=== PATIENT | female | born 1965 | race Asian ===

== ENCOUNTER 2021-01-27 09:58 | Inpatient (IN) | payer MEDICAID ==
[~2021-01-27] VITALS: Ht 144.8 cm; Wt 82.0 kg
[2021-01-27] MEDS ORDERED: normal saline 1000ml 1,000 ML IV ONE ×2 (10:10→12:55)
[2021-01-27] MEDS ORDERED: haloperidol lactate 5mg/ml inj IM ONE (10:50)
[2021-01-27 10:59] LABS: BASOPHILS # (AUTO) 0.1 X10'3 (0-0.2); EOSINOPHILS # (AUTO) 0.2 X10'3 (0-0.9); EOSINOPHILS % (AUTO) 1.1 % (0-6); HEMATOCRIT 36.7 % (35.0-45.0); HEMOGLOBIN 11.4 g/dl (12.0-16.0); LYMPHOCYTES # (AUTO) 2.3 X10'3 (1.1-4.8); LYMPHOCYTES % (AUTO) 15.3 % (21-51); MEAN CORPUSCULAR HEMOGLOBIN 20.3 PG (27.0-31.0); MEAN CORPUSCULAR HGB CONC 31.1 g/dL (33.0-36.5); MEAN CORPUSCULAR VOLUME 65.4 FL (78-98); MEAN PLATELET VOLUME 8.9 FL (7.4-10.4); MONOCYTES # (AUTO) 1.2 X10'3 (0-0.9); MONOCYTES % (AUTO) 8.3 % (2-12); NEUTROPHILS % (AUTO) 74.3 % (42-75); PLATELET COUNT 264 X10'3 (140-440); RED BLOOD COUNT 5.62 X10'6 (4.20-5.60); RED CELL DISTRIBUTION WIDTH 15.7 % (11.5-14.5); WHITE BLOOD COUNT 14.8 X10'3 (4.5-11.0)
[2021-01-27 11:12] LABS: AMMONIA < 10 UMOL/L (11-32)
[2021-01-27 11:18] LABS: ALANINE AMINOTRANSFERASE 29 U/L (12-78); ALBUMIN 3.4 G/DL (3.4-5.0); ALBUMIN/GLOBULIN RATIO 0.8 (1.1-1.5); ALKALINE PHOSPHATASE 86 IU/L (46-116); ANION GAP 11 (8-16); ASPARTATE AMINO TRANSFERASE 16 U/L (10-37); BILIRUBIN,TOTAL 0.9 MG/DL (0.1-1.0); BLOOD UREA NITROGEN 19 MG/DL (7-18); BUN/CREATININE RATIO 18.8 (6.6-38.0); CALCIUM 8.5 MG/DL (8.5-10.1); CHLORIDE 107 MMOL/L (99-107); CREATININE 1.01 MG/DL (0.40-0.90); GLUCOSE 132 MG/DL (70-104); POTASSIUM 3.6 MMOL/L (3.5-5.1); SODIUM 147 MMOL/L (135-145); TOTAL CARBON DIOXIDE 29.5 MMOL/L (24-32); TOTAL PROTEIN 7.6 G/DL (6.4-8.2); eGFR 57 ML/MIN
[2021-01-27 11:22] LABS: ETHANOL < 0.010 GM/DL (0.0-0.010); TROPONIN I < 0.04 NG/ML (0.0-0.05)
--- NOTE | 2021-01-27 11:24 | NUR ---
unsucessful attempt at stright cath X 1
[2021-01-27 11:37] LABS: MICROCYTOSIS 2+; PLATELET ESTIMATE NORMAL
[2021-01-27 11:38] LABS: ELLIPTOCYTES FEW; SCHISTOCYTES FEW
[2021-01-27 13:32] LABS: LACTIC SEPSIS 1.7 MMOL/L (0.4-2.0)
[2021-01-27] MEDS ORDERED: magnesium 4gm in 100ml NS 100 ML IV PRN (14:00)
[2021-01-27] MEDS ORDERED: magnesium hydroxide 30ml (MOM) UD suspension PO PRN (14:00)
[2021-01-27] MEDS ORDERED: magnesium 2GM in 50ml NS 50 ML IV PRN (14:00)
[2021-01-27] MEDS ORDERED: mag hydrox/Alum hydrox/simeth 30ml oral suspension PO PRN (14:00)
[2021-01-27] MEDS ORDERED: magnesium Cl slow-release 64mg tablet PO PRN (14:00)
[2021-01-27] MEDS ORDERED: bisacodyl 10mg suppository rectal RC PRN (14:00)
[2021-01-27] MEDS ORDERED: metoclopramide 5 mg/ml inj IV PRN (14:00)
[2021-01-27] MEDS ORDERED: ondansetron/PF 4mg/2ml inj IV PRN (14:00)
[2021-01-27] MEDS ORDERED: potassium Cl 40MEQ/1/2NS 520ml 520 ML IV PRN ×2 (14:00)
[2021-01-27] MEDS ORDERED: acetaminophen 325mg tablet PO PRN ×2 (14:00)
[2021-01-27] MEDS ORDERED: potassium Cl 20 mEq SR tablet PO PRN (14:00)
[2021-01-27] MEDS: CefTRIAXone/D5W-Rocephin 1gm 50 ML IV SCH (15:19)
[2021-01-27] MEDS: normal saline 1000ml 1,000 ML IV SCH (15:20)
[2021-01-27] MEDS ORDERED: METF-437 PO (15:41)
[2021-01-27] MEDS ORDERED: OMEP10CA5 PO (15:41)
[2021-01-27] MEDS ORDERED: NAPR-1170 PO (15:41)
[2021-01-27] MEDS ORDERED: METH-806 PO (15:41)
[2021-01-27] MEDS ORDERED: ATOR10TA70 PO (15:41)
[2021-01-27 16:13] LABS: URINE AMPHETAMINE SCREEN POSITIVE (Neg); URINE BARBITUATE SCREEN NEGATIVE (Neg); URINE BENZODIAZEPINES SCREEN NEGATIVE (Neg); URINE CANNABINOID SCREEN NEGATIVE (Neg); URINE COCAINE SCREEN NEGATIVE (Neg); URINE METHADONE SCREEN POSITIVE (Neg); URINE OPIATE SCREEN POSITIVE (Neg); URINE PHENCYCLIDINE SCREEN NEGATIVE (Neg)
[2021-01-27 16:28] LABS: CLARITY,URINE CLEAR (Clear); COLOR,URINE YELLOW (Yellow); PH,URINE 7.5 (4.8-8.0); PROTEIN,URINE NEGATIVE (Neg); UA COLLECTION TYPE NON-SPECIFIED
[2021-01-27 16:29] LABS: GLUCOSE, URINE NEGATIVE (Neg); KETONES,URINE NEGATIVE (Neg); NITRITES, URINE NEGATIVE (Neg); OCCULT BLOOD,URINE NEGATIVE (Neg)
[2021-01-27 16:30] LABS: LEUKOCYTE ESTERASE ,URINE NEGATIVE (Neg)
[2021-01-27] MEDS: K and/or MAG REPLACEMENT MC SCH (20:18)
[2021-01-27] MEDS: docusate sod 100mg capsule PO SCH (20:29)
[2021-01-27] MEDS: heparin, porcine 5000 units/ml vial SQ SCH (20:30)
[2021-01-27] MEDS ORDERED: temazepam 15mg capsule PO PRN (21:00)
--- NOTE | 2021-01-27 22:35 | NUR ---
Patient in room ED 7. I have received report from PAWEL KAUR and had the opportunity to ask questions and will assume patient care when patient arrives.
[2021-01-28] VITALS: BP 121/55
[2021-01-28] MEDS: normal saline 1000ml 1,000 ML IV SCH ×4 (03:29→18:03)
--- NOTE | 2021-01-28 06:33 | NUR ---
Patient in room [facility] 350. I have received report from Elba KAUR and had the opportunity to ask questions and assume patient care.
--- NOTE | 2021-01-28 06:34 | NUR ---
Problems reprioritized. Patient report given, questions answered & plan of care reviewed with MAIRA E KAUR.
[2021-01-28 07:25] LABS: BASOPHILS % (AUTO) 0.5 % (0-1); EOSINOPHILS # (AUTO) 0.3 X10'3 (0-0.9); EOSINOPHILS % (AUTO) 3.2 % (0-6); HEMATOCRIT 34.7 % (35.0-45.0); HEMOGLOBIN 10.7 g/dl (12.0-16.0); LYMPHOCYTES # (AUTO) 1.7 X10'3 (1.1-4.8); LYMPHOCYTES % (AUTO) 20.9 % (21-51); MEAN CORPUSCULAR HEMOGLOBIN 20.7 PG (27.0-31.0); MEAN CORPUSCULAR HGB CONC 30.8 g/dL (33.0-36.5); MEAN CORPUSCULAR VOLUME 67.2 FL (78-98); MEAN PLATELET VOLUME 8.6 FL (7.4-10.4); MONOCYTES # (AUTO) 0.6 X10'3 (0-0.9); MONOCYTES % (AUTO) 7.9 % (2-12); NEUTROPHILS # (AUTO) 5.5 X10'3 (1.8-7.7); NEUTROPHILS % (AUTO) 67.5 % (42-75); PLATELET COUNT 206 X10'3 (140-440); RED BLOOD COUNT 5.16 X10'6 (4.20-5.60); RED CELL DISTRIBUTION WIDTH 16.1 % (11.5-14.5); WHITE BLOOD COUNT 8.1 X10'3 (4.5-11.0)
[2021-01-28 07:58] LABS: ALANINE AMINOTRANSFERASE 48 U/L (12-78); ALBUMIN 2.7 G/DL (3.4-5.0); ALBUMIN/GLOBULIN RATIO 0.7 (1.1-1.5); ALKALINE PHOSPHATASE 83 IU/L (46-116); ANION GAP 13 (8-16); ASPARTATE AMINO TRANSFERASE 51 U/L (10-37); BILIRUBIN,TOTAL 0.8 MG/DL (0.1-1.0); BLOOD UREA NITROGEN 14 MG/DL (7-18); BUN/CREATININE RATIO 20.6 (6.6-38.0); CALCIUM 8.2 MG/DL (8.5-10.1); CHLORIDE 109 MMOL/L (99-107); CREATININE 0.68 MG/DL (0.40-0.90); GLUCOSE 82 MG/DL (70-104); MAGNESIUM 2.3 MG/DL (1.5-2.4); POTASSIUM 3.3 MMOL/L (3.5-5.1); SODIUM 145 MMOL/L (135-145); TOTAL CARBON DIOXIDE 23.2 MMOL/L (24-32); TOTAL PROTEIN 6.4 G/DL (6.4-8.2); eGFR 90 ML/MIN
[2021-01-28] MEDS: K and/or MAG REPLACEMENT MC SCH ×2 (08:00→20:00)
[2021-01-28] MEDS: docusate sod 100mg capsule PO SCH ×2 (08:46→21:40)
[2021-01-28] MEDS: heparin, porcine 5000 units/ml vial SQ SCH ×2 (08:48→20:00)
[2021-01-28] MEDS: CefTRIAXone/D5W-Rocephin 1gm 50 ML IV SCH (08:48)
[2021-01-28] MEDS: pantoprazole 40mg Tablet.DR PO SCH (08:53)
[2021-01-28 10:04] VITALS: BP 156/72
[2021-01-28 11:44] VITALS: BP 132/70
[2021-01-28 12:33] LABS: ANISOCYTOSIS 1+; MICROCYTOSIS 2+; PLATELET ESTIMATE NORMAL
[2021-01-28 12:34] LABS: ELLIPTOCYTES 1+; SCHISTOCYTES FEW
[2021-01-28] MEDS: potassium Cl 20 mEq SR tablet PO PRN ×2 (16:51→21:40)
--- NOTE | 2021-01-28 19:11 | NUR ---
Family into see patient reported that patient normally taked methadone and zyrtec. DR Colon gave orders with regards this. Slept on and off most of shift. family states this is her baseline. Patients VSS. Report given to carla KAUR
[2021-01-28] MEDS: methadone 10mg tablet PO SCH (21:39)
[2021-01-28] MEDS: cetirizine 10mg tablet PO SCH (21:51)
[2021-01-28] MEDS: lactobacillus rhamnosus 10,000 MMU CELLS/CAPSULE PO SCH (21:51)
--- NOTE | 2021-01-29 06:35 | NUR ---
Problems reprioritized. Patient report given, questions answered & plan of care reviewed with
[2021-01-29 06:49] LABS: BASOPHILS % (AUTO) 0.7 % (0-1); EOSINOPHILS # (AUTO) 0.2 X10'3 (0-0.9); HEMATOCRIT 35.6 % (35.0-45.0); HEMOGLOBIN 11.2 g/dl (12.0-16.0); LYMPHOCYTES # (AUTO) 1.8 X10'3 (1.1-4.8); MEAN CORPUSCULAR HEMOGLOBIN 20.5 PG (27.0-31.0); MEAN CORPUSCULAR HGB CONC 31.3 g/dL (33.0-36.5); MEAN CORPUSCULAR VOLUME 65.4 FL (78-98); MEAN PLATELET VOLUME 8.8 FL (7.4-10.4); MONOCYTES # (AUTO) 0.5 X10'3 (0-0.9); MONOCYTES % (AUTO) 8.4 % (2-12); NEUTROPHILS # (AUTO) 3.3 X10'3 (1.8-7.7); NEUTROPHILS % (AUTO) 56.9 % (42-75); PLATELET COUNT 234 X10'3 (140-440); RED BLOOD COUNT 5.45 X10'6 (4.20-5.60); RED CELL DISTRIBUTION WIDTH 15.7 % (11.5-14.5); WHITE BLOOD COUNT 5.8 X10'3 (4.5-11.0)
--- NOTE | 2021-01-29 06:51 | NUR ---
Patient in room [facility] 350. I have received report from jody KAUR and had the opportunity to ask questions and assume patient care.
[2021-01-29 07:00] VITALS: BP 146/66
[2021-01-29 07:01] LABS: ALANINE AMINOTRANSFERASE 59 U/L (12-78); ALBUMIN 2.7 G/DL (3.4-5.0); ALBUMIN/GLOBULIN RATIO 0.7 (1.1-1.5); ALKALINE PHOSPHATASE 83 IU/L (46-116); ANION GAP 10 (8-16); ASPARTATE AMINO TRANSFERASE 40 U/L (10-37); BILIRUBIN,TOTAL 0.4 MG/DL (0.1-1.0); BLOOD UREA NITROGEN 7 MG/DL (7-18); BUN/CREATININE RATIO 9.3 (6.6-38.0); CALCIUM 8.3 MG/DL (8.5-10.1); CHLORIDE 107 MMOL/L (99-107); CREATININE 0.75 MG/DL (0.40-0.90); GLUCOSE 90 MG/DL (70-104); MAGNESIUM 1.9 MG/DL (1.5-2.4); POTASSIUM 3.2 MMOL/L (3.5-5.1); SODIUM 145 MMOL/L (135-145); TOTAL CARBON DIOXIDE 27.7 MMOL/L (24-32); TOTAL PROTEIN 6.8 G/DL (6.4-8.2); eGFR 80 ML/MIN
[2021-01-29] MEDS: K and/or MAG REPLACEMENT MC SCH (08:00)
[2021-01-29] MEDS: CefTRIAXone/D5W-Rocephin 1gm 50 ML IV SCH (08:11)
[2021-01-29] MEDS: lactobacillus rhamnosus 10,000 MMU CELLS/CAPSULE PO SCH (08:12)
[2021-01-29] MEDS: pantoprazole 40mg Tablet.DR PO SCH (08:12)
[2021-01-29] MEDS: cetirizine 10mg tablet PO SCH (08:12)
[2021-01-29] MEDS: docusate sod 100mg capsule PO SCH (08:12)
[2021-01-29] MEDS: methadone 10mg tablet PO SCH (08:12)
[2021-01-29] MEDS: heparin, porcine 5000 units/ml vial SQ SCH (08:13)
[2021-01-29] MEDS: potassium Cl 20 mEq SR tablet PO PRN ×2 (10:19→14:35)
[2021-01-29] MEDS ORDERED: ondansetron 4mg rapidly disintigrating tab PO PRN (10:35)
[2021-01-29 12:04] LABS: ANISOCYTOSIS 1+; ELLIPTOCYTES 1+; MICROCYTOSIS 2+; PLATELET ESTIMATE NORMAL
[2021-01-29 12:06] LABS: POIKILOCYTOSIS FEW
--- NOTE | 2021-01-29 14:54 | NUR ---
patient up in room to BR appears stable. seen by Dr Gaxiola is for discharge. All Dc instructions given to patient and to family member. patient DC home via private car with family to home in stable condition.
== END 2021-01-29 14:39 | disposition home or self-care (01) | DRG 812 ==
LOC: ER 09:58 → ED HOLD 14:00 → EDBEDREQ 22:46 → SUR 3N 23:26
PROVIDERS: ADMIT Family Medicine; ATTEND Family Medicine
DX: T43.621A Poisoning by amphetamines, accidental (unintentional), initial encounter (principal); G92.8 Other toxic encephalopathy; E87.1 Hypo-osmolality and hyponatremia; E11.22 Type 2 diabetes mellitus with diabetic chronic kidney disease; D64.9 Anemia, unspecified; E78.5 Hyperlipidemia, unspecified; E87.6 Hypokalemia; F15.10 Other stimulant abuse, uncomplicated; Z20.822 Contact with and (suspected) exposure to COVID-19; N18.9 Chronic kidney disease, unspecified; G89.29 Other chronic pain; Z71.51 Drug abuse counseling and surveillance of drug abuser; Y92.89 Other specified places as the place of occurrence of the external cause
CPT/HCPCS: 36415; 70450; 71045; 80053; 80305; 80320; 81003; 82140; 82948; 83605; 83735; 83880; 84145; 84443; 84484; 85008; 85025; 87081; 87635; 93005; 97116; 97161; 97530; 99285; C9803; G0378; J0696; J1630; J1644; J7030

== ENCOUNTER 2023-01-31 06:40 | Inpatient (IN) | payer MEDICAID ==
[2023-01-25 17:14] LABS: PRE OP WHITE BLOOD COUNT 7.3 10'3 (4.8-10.8)
[2023-01-25 17:15] LABS: BASOPHILS % (AUTO) 0.5 % (0-1); EOSINOPHILS # (AUTO) 0.1 X10'3 (0-0.9); EOSINOPHILS % (AUTO) 1.4 % (0-6); LYMPHOCYTES # (AUTO) 2.5 X10'3 (1.1-4.8); LYMPHOCYTES % (AUTO) 34.9 % (21-51); MEAN CORPUSCULAR HEMOGLOBIN 20.9 PG (27.0-31.0); MEAN CORPUSCULAR HGB CONC 31.6 g/dL (33.0-36.5); MEAN CORPUSCULAR VOLUME 66.2 FL (78-98); MEAN PLATELET VOLUME 9.3 FL (7.4-10.4); MONOCYTES # (AUTO) 0.5 X10'3 (0-0.9); MONOCYTES % (AUTO) 6.2 % (2-12); NEUTROPHILS # (AUTO) 4.2 X10'3 (1.8-7.7); PRE OP PLATELET COUNT 285 X10'3 (140-440); RED BLOOD COUNT 5.13 X10'6 (4.20-5.60); RED CELL DISTRIBUTION WIDTH 16.6 % (11.5-14.5)
[2023-01-25 17:17] LABS: PRE OP HEMOGLOBIN 10.7 g/dL (12.0-16.0)
[2023-01-25 17:18] LABS: HEMOGLOBIN A1C 6.3 % (4.5-6.2)
[2023-01-25 17:27] LABS: ALBUMIN 3.3 G/DL (3.4-5.0); ALBUMIN/GLOBULIN RATIO 0.8 (1.1-1.5); ALKALINE PHOSPHATASE 74 IU/L (46-116); BLOOD UREA NITROGEN 12 MG/DL (7-18); BUN/CREATININE RATIO 15.4 (10.0-20.0); CALCIUM 9.1 MG/DL (8.5-10.1); CHLORIDE 103 MMOL/L (99-107); CREATININE 0.78 MG/DL (0.40-0.90); PRE OP ALT 24 U/L (30-65); PRE OP ANION GAP 4 (8-16); PRE OP AST 19 U/L (10-37); PRE OP BILIRUB, TOTAL 0.5 MG/DL (0.0-1.0); PRE OP GLUCOSE 88 MG/DL (70-104); PRE OP POTASSIUM 3.5 MMOL/L (3.4-5.1); PRE OP SODIUM 138 MMOL/L (135-145); TOTAL CARBON DIOXIDE 31.4 MMOL/L (24-32); TOTAL PROTEIN 7.3 G/DL (6.4-8.2); eGFR 76 ML/MIN
[2023-01-25 19:39] LABS: ANISOCYTOSIS 1+; PLATELET ESTIMATE NORMAL
[2023-01-25 19:40] LABS: MICROCYTOSIS 2+; POIKILOCYTOSIS 2+
[2023-01-25 19:41] LABS: TARGET CELLS FEW
[2023-01-25 19:42] LABS: ELLIPTOCYTES 1+
[2023-01-25 19:43] LABS: SCHISTOCYTES FEW
[2023-01-25 19:45] LABS: LARGE PLATELETS FEW
[2023-01-31] VITALS (31 sets, daily range): BP systolic 11–144; BP diastolic 49–80; PULSE 71–92; RESP 13–16; TEMP 98.2–98.3; O2SAT 92–100
[~2023-01-31] VITALS: Ht 144.8 cm; Wt 59.0 kg
[~2023-01-31 06:40] MED LIST: ATOR10TA70 PO; IBUP-1985 PO; LISI20TA28 PO; METF-900 PO; METHADONE PO; OMEP20CA16 PO; cefazolin 2gm/D5W 100mL 100 ML IV ONE; famotidine 20mg tablet PO ONE; ringers solution, lacted 1,000 ML IV SCH; vancomycin 1,500 MG in NS 300ml IV soln IV ONE
[2023-01-31] MEDS ORDERED: glucagon, human recombinant 1mg kit SUBCUT PRN (07:20)
[2023-01-31] MEDS ORDERED: MESSAGE TO PHARMACY PO ONE (07:20)
[2023-01-31] MEDS ORDERED: naloxone 0.4 mg/ml inj IV PRN (07:20)
[2023-01-31] MEDS ORDERED: bisacodyl 10mg suppository rectal RC PRN (07:20)
[2023-01-31] MEDS ORDERED: insulin Lispro (HumaLOG) vial - multi-dose SQ SCH (07:20)
[2023-01-31] MEDS ORDERED: ondansetron/PF 4mg/2ml inj IV PRN ×2 (07:20→10:30)
[2023-01-31] MEDS ORDERED: diphenhydrAMINE 25mg capsule PO PRN ×2 (07:20)
[2023-01-31] MEDS ORDERED: DEXTROSE 15 GM of carb/4 tabs (each vial/BOTTLE has 4 tablets) PO PRN ×2 (07:20)
[2023-01-31] MEDS ORDERED: dextrose 50%-water 50ml dispensing syringe IV PRN ×2 (07:20)
[2023-01-31] MEDS ORDERED: acetaminophen 325mg tablet PO PRN (07:20)
[2023-01-31] MEDS ORDERED: HYDROmorphone inj. 0.5 MG/0.5 ML DISP.SYRIN IV PRN (07:20)
[2023-01-31] MEDS ORDERED: magnesium hydroxide 30ml (MOM) UD suspension PO PRN (07:20)
[2023-01-31] MEDS ORDERED: cloNIDine hcl/PF 100mcg/ml inj ONE (08:13)
[2023-01-31] MEDS ORDERED: epiNEPHrine 1 mg/ml inj ONE (08:13)
[2023-01-31] MEDS ORDERED: vancomycin 1,000mg inj ONE (08:13)
[2023-01-31] MEDS ORDERED: BUPIVACAINE/MELOXICAM 14 ML VIAL IL ONE (08:13)
[2023-01-31] MEDS ORDERED: ROPIVAcaine 0.5% (5mg/ml) 30ml vial ONE ×2 (08:13→10:33)
[2023-01-31] MEDS ORDERED: acetaminophen 325mg tablet PO ONE (09:25)
[2023-01-31] MEDS ORDERED: celeCOXIB 100mg capsule PO ONE (09:25)
[2023-01-31] MEDS ORDERED: gabapentin 300mg capsule PO ONE (09:25)
[2023-01-31] MEDS ORDERED: oxyCODONE SR 10mg (sust. release) tab -2 tabs (20mg) PO ONE (09:25)
[2023-01-31] MEDS ORDERED: tranexamic acid inj. 1,000 MG in normal saline IV soln 100ML IV ONE (09:25)
[2023-01-31] MEDS ORDERED: metoclopramide 5 mg/ml inj IV ONE (09:25)
[2023-01-31] MEDS ORDERED: fentaNYL/PF 50MCG/1 ML 2ML syringe ONE (09:44)
[2023-01-31] MEDS ORDERED: midazolam 1 mg/ML 2ml injection ONE (09:45)
[2023-01-31] MEDS ORDERED: propofol inj 20 ML IV ONE ×2 (10:17)
[2023-01-31] MEDS ORDERED: morphine 2 MG/ML inj. syringe IV PRN (10:30)
[2023-01-31] MEDS ORDERED: meperidine/PF 25mg/ml syringe IV PRN ×3 (10:30)
[2023-01-31] MEDS ORDERED: proCHLORperazine 10 MG/2 ml inj IV PRN (10:30)
[2023-01-31] MEDS ORDERED: morphine 4 MG/ML inj SYRINge IV PRN (10:30)
[2023-01-31] MEDS ORDERED: ringers solution, lacted 1,000 ML IV SCH (10:30)
[2023-01-31] MEDS ORDERED: hydrALAZINE 20mg/ml inj. IV PRN (10:30)
[2023-01-31] MEDS ORDERED: ketorolac trometh. 30mg/ml inj. IV ONE (10:30)
[2023-01-31] MEDS ORDERED: acetaminophen 1,000mg/100ml IV 100 ML IV PRN (10:30)
[2023-01-31] MEDS ORDERED: labetalol 20mg/4ml (5mg/ml) syringe IV PRN (10:30)
[2023-01-31] MEDS ORDERED: dexamethasone sod phosphate 4mg/ml inj. ONE (10:33)
--- NOTE | 2023-01-31 11:50 | NUR ---
Received from OR via BED, accompanied by Anesthesiologist and report given by Anesthesiologist. PATIENT WAKING UP, NO S/S OF PAIN, V/S WNL, SCD ON, 20G TO RUE, SUNNY drsg to LEFT KNEE CDI with POWDER PACK
--- NOTE | 2023-01-31 11:50 | NUR ---
Received from OR via BED, accompanied by Anesthesiologist and report given by Anesthesiologist. PATIENT WAKING UP, NO S/S OF PAIN, V/S WNL, SCD ON, 12G TO SUNNY MEADE drsg to RIGHT KNEE CDI with ON Q BALL AT 2ML/HR. Addendum: 01/31/23 at 1155 by Jack Bailey RN WRONG NOTE
[2023-01-31] MEDS ORDERED: tranexamic acid inj. 680 MG in normal saline 100ml IV soln 93.2 ML IV ONE (15:00)
--- NOTE | 2023-01-31 17:50 | NUR ---
PATIENT a&ox4, denies PAIN, V/S WNL, SCD ON, 20G TO RUE, SUNNY drsg to LEFT KNEE CDI with POWDER PACK. patient taken to 4007 with all belongings and hooked up to monitors in room and report given to derek tariq who has taken over patient care.
--- NOTE | 2023-01-31 18:05 | NUR ---
Patient in room [facility] 4007. I have received report from VINCENT Tang and had the opportunity to ask questions and will take vitals and give report to night nurse.
--- NOTE | 2023-01-31 18:30 | NUR ---
Problems reprioritized. Patient report given, questions answered & plan of care reviewed with VINCENT Meléndez.
--- NOTE | 2023-01-31 18:40 | NUR ---
Patient in room [facility]TH[facility] 4007. I have received report from VINCENT Espinoza and had the opportunity to ask questions and assume patient care.
[2023-01-31] MEDS ORDERED: vancomycin/NS 1 GM ADD-VANTAGE 250 ML IV SCH (20:00)
[2023-01-31] MEDS: potassium cl 20mEq in 1/2 NS 1,000 ML IV SCH ×2 (20:37→21:09)
[2023-01-31] MEDS: ascorbic acid 500mg tablet PO SCH (20:41)
[2023-01-31] MEDS: sennosides 8.6mg tablet PO SCH (20:41)
[2023-01-31] MEDS: gabapentin 300mg capsule PO SCH (20:41)
[2023-01-31] MEDS: atorvastatin 10mg tablet PO SCH (20:41)
[2023-01-31] MEDS: insulin glargine (Lantus) pen - multi-dose SQ SCH (21:00)
[2023-02-01] VITALS (7 sets, daily range): BP systolic 103–145; BP diastolic 60–83; PULSE 66–112; RESP 14–18; TEMP 97.9–98.8; O2SAT 95–99
--- NOTE | 2023-02-01 06:46 | NUR ---
Patient in room [facility]TH[facility] 4007. I have received report from KENDAL KAUR and had the opportunity to ask questions and assume patient care.
--- NOTE | 2023-02-01 06:47 | NUR ---
Problems reprioritized. Patient report given, questions answered & plan of care reviewed with VINCENT Wilson.
[2023-02-01] MEDS: methadone 10mg tablet PO SCH (07:11)
[2023-02-01] MEDS: lisinopril 20mg tablet PO SCH (07:12)
[2023-02-01] MEDS: gabapentin 300mg capsule PO SCH ×3 (07:12→20:11)
[2023-02-01] MEDS: multivitamins, therapeutics tablet PO SCH (07:13)
[2023-02-01] MEDS: pantoprazole 40mg Tablet.DR PO SCH (07:13)
[2023-02-01] MEDS: ascorbic acid 500mg tablet PO SCH ×2 (07:13→20:11)
[2023-02-01] MEDS: potassium cl 20mEq in 1/2 NS 1,000 ML IV SCH ×3 (07:21→17:18)
[2023-02-01] MEDS: aspirin 325mg tablet PO SCH (07:21)
[2023-02-01 07:40] LABS: BASOPHILS # (AUTO) 0.1 X10'3 (0-0.2); BASOPHILS % (AUTO) 0.5 % (0-1); EOSINOPHILS # (AUTO) 0.1 X10'3 (0-0.9); EOSINOPHILS % (AUTO) 0.5 % (0-6); HEMATOCRIT 28.3 % (35.0-45.0); LYMPHOCYTES # (AUTO) 1.3 X10'3 (1.1-4.8); LYMPHOCYTES % (AUTO) 12.2 % (21-51); MEAN CORPUSCULAR HGB CONC 31.7 g/dL (33.0-36.5); MEAN CORPUSCULAR VOLUME 66.2 FL (78-98); MEAN PLATELET VOLUME 9.9 FL (7.4-10.4); MONOCYTES # (AUTO) 1.1 X10'3 (0-0.9); MONOCYTES % (AUTO) 10.3 % (2-12); NEUTROPHILS # (AUTO) 8.1 X10'3 (1.8-7.7); NEUTROPHILS % (AUTO) 76.5 % (42-75); PLATELET COUNT 197 X10'3 (140-440); RED BLOOD COUNT 4.28 X10'6 (4.20-5.60); RED CELL DISTRIBUTION WIDTH 16.7 % (11.5-14.5); WHITE BLOOD COUNT 10.6 X10'3 (4.5-11.0)
[2023-02-01 08:19] LABS: ANION GAP 7 (8-16); CHLORIDE 105 MMOL/L (99-107); SODIUM 139 MMOL/L (135-145)
[2023-02-01 09:51] LABS: PLATELET ESTIMATE NORMAL
[2023-02-01 09:52] LABS: ANISOCYTOSIS 1+; ELLIPTOCYTES 2+; HYPOCHROMASIA 2+; MICROCYTOSIS 2+; POLYCHROMASIA FEW; SCHISTOCYTES FEW; TARGET CELLS FEW
--- NOTE | 2023-02-01 10:57 | NUR ---
Joint surgery consult: Pt s/p knee surgery. Pt busy with another discipline during RD visit. Placed high protein nutrition handout in pt's chart with RD contact information. Will remain available for any nutrition questions or concerns. Addendum: 02/01/23 at [address] Amended: Links added.
[2023-02-01] MEDS: HYDROcodone/acetaminophen 10/325mg tab PO PRN ×2 (14:58→19:17)
[2023-02-01] MEDS: HYDROmorphone 1 mg/ml syringe IV PRN ×2 (17:12→22:31)
--- NOTE | 2023-02-01 18:31 | NUR ---
Problems reprioritized. Patient report given to sully KAUR, questions answered & plan of care reviewed with .
[2023-02-01] MEDS: atorvastatin 10mg tablet PO SCH (20:11)
[2023-02-01] MEDS: celeCOXIB 100mg capsule PO SCH (20:11)
[2023-02-01] MEDS: sennosides 8.6mg tablet PO SCH (20:11)
[2023-02-01] MEDS: insulin glargine (Lantus) pen - multi-dose SQ SCH (21:00)
[2023-02-02] MEDS: potassium cl 20mEq in 1/2 NS 1,000 ML IV SCH (01:26)
[2023-02-02] MEDS: HYDROcodone/acetaminophen 10/325mg tab PO PRN ×3 (01:29→19:17)
[2023-02-02] MEDS: HYDROmorphone 1 mg/ml syringe IV PRN ×2 (02:51→11:23)
--- NOTE | 2023-02-02 06:24 | NUR ---
Patient in room ORTH[facility] 4007. I have received report from MARY KAUR and had the opportunity to ask questions and assume patient care.
--- NOTE | 2023-02-02 06:25 | NUR ---
Problems reprioritized. Patient report given, questions answered & plan of care reviewed with [place] KAUR. Addendum: 02/02/23 at 0625 by Toshia Stephens RN Amended: Links added.
[2023-02-02 06:33] VITALS: BP 162/91; PULSE 102; RESP 16; TEMP 97.6; O2SAT 98
[2023-02-02 06:41] LABS: BASOPHILS # (AUTO) 0.1 X10'3 (0-0.2); BASOPHILS % (AUTO) 0.5 % (0-1); EOSINOPHILS # (AUTO) 0.1 X10'3 (0-0.9); EOSINOPHILS % (AUTO) 1.2 % (0-6); HEMATOCRIT 30.1 % (35.0-45.0); HEMOGLOBIN 9.5 g/dl (12.0-16.0); LYMPHOCYTES # (AUTO) 1.5 X10'3 (1.1-4.8); LYMPHOCYTES % (AUTO) 13.9 % (21-51); MEAN CORPUSCULAR HGB CONC 31.6 g/dL (33.0-36.5); MEAN CORPUSCULAR VOLUME 66.5 FL (78-98); MEAN PLATELET VOLUME 9.5 FL (7.4-10.4); MONOCYTES # (AUTO) 1.2 X10'3 (0-0.9); MONOCYTES % (AUTO) 11.2 % (2-12); NEUTROPHILS % (AUTO) 73.2 % (42-75); PLATELET COUNT 211 X10'3 (140-440); RED BLOOD COUNT 4.52 X10'6 (4.20-5.60); RED CELL DISTRIBUTION WIDTH 16.5 % (11.5-14.5); WHITE BLOOD COUNT 10.9 X10'3 (4.5-11.0)
[2023-02-02 07:21] LABS: ACANTHOCYTES FEW; ANISOCYTOSIS 1+; ELLIPTOCYTES 1+; MICROCYTOSIS 2+; PLATELET ESTIMATE NORMAL; SCHISTOCYTES FEW
[2023-02-02] MEDS: gabapentin 300mg capsule PO SCH ×3 (07:27→19:16)
[2023-02-02] MEDS: multivitamins, therapeutics tablet PO SCH (07:27)
[2023-02-02] MEDS: methadone 10mg tablet PO SCH (07:27)
[2023-02-02] MEDS: celeCOXIB 100mg capsule PO SCH ×2 (07:28→19:17)
[2023-02-02] MEDS: ascorbic acid 500mg tablet PO SCH ×2 (07:28→19:18)
[2023-02-02] MEDS: pantoprazole 40mg Tablet.DR PO SCH (07:28)
[2023-02-02] MEDS: lisinopril 20mg tablet PO SCH (07:29)
[2023-02-02] MEDS: aspirin 325mg tablet PO SCH (09:21)
[2023-02-02 09:46] VITALS: BP 139/83; PULSE 79; RESP 16; TEMP 98.2; O2SAT 99
[2023-02-02 11:35] VITALS: RESP 16; O2SAT 99
[2023-02-02] MEDS ORDERED: ondansetron 4mg rapidly disintigrating tab PO PRN (13:07)
[2023-02-02 18:00] VITALS: BP 148/82; PULSE 107; RESP 19; TEMP 98.1; O2SAT 99
--- NOTE | 2023-02-02 18:46 | NUR ---
Problems reprioritized. Patient report given TO GABRIELE KAUR, questions answered & plan of care reviewed with .
[2023-02-02] MEDS: sennosides 8.6mg tablet PO SCH (19:16)
[2023-02-02] MEDS: atorvastatin 10mg tablet PO SCH (19:17)
[2023-02-02] MEDS: insulin glargine (Lantus) pen - multi-dose SQ SCH (21:00)
[2023-02-02 22:00] VITALS: BP 126/68; PULSE 96; RESP 14; TEMP 98.6; O2SAT 97
--- NOTE | 2023-02-02 22:57 | NUR ---
reported to VINCENT gold.
[2023-02-03 02:00] VITALS: BP 126/68; PULSE 96; RESP 14; TEMP 98.6; O2SAT 97
[2023-02-03] MEDS: HYDROcodone/acetaminophen 10/325mg tab PO PRN ×5 (04:43→22:26)
[2023-02-03 06:00] VITALS: BP 140/81; PULSE 98; RESP 20; TEMP 97.8; O2SAT 97
--- NOTE | 2023-02-03 06:38 | NUR ---
Patient in room [facility] 4007. I have received report from VINCENT Panda and had the opportunity to ask questions and assume patient care.
[2023-02-03] MEDS: ascorbic acid 500mg tablet PO SCH ×2 (07:14→20:10)
[2023-02-03] MEDS: gabapentin 300mg capsule PO SCH ×3 (07:14→20:10)
[2023-02-03] MEDS: celeCOXIB 100mg capsule PO SCH ×2 (07:14→20:10)
[2023-02-03] MEDS: multivitamins, therapeutics tablet PO SCH (07:15)
[2023-02-03] MEDS: lisinopril 20mg tablet PO SCH (07:15)
[2023-02-03] MEDS: methadone 10mg tablet PO SCH (07:16)
[2023-02-03] MEDS: pantoprazole 40mg Tablet.DR PO SCH (07:16)
[2023-02-03] MEDS: aspirin 325mg tablet PO SCH (07:25)
[2023-02-03 07:31] LABS: BASOPHILS # (AUTO) 0.1 X10'3 (0-0.2); BASOPHILS % (AUTO) 0.6 % (0-1); EOSINOPHILS # (AUTO) 0.3 X10'3 (0-0.9); HEMOGLOBIN 9.1 g/dl (12.0-16.0); LYMPHOCYTES # (AUTO) 1.5 X10'3 (1.1-4.8); LYMPHOCYTES % (AUTO) 14.1 % (21-51); MEAN CORPUSCULAR HEMOGLOBIN 20.8 PG (27.0-31.0); MEAN CORPUSCULAR HGB CONC 31.5 g/dL (33.0-36.5); MEAN CORPUSCULAR VOLUME 66.1 FL (78-98); MEAN PLATELET VOLUME 10.4 FL (7.4-10.4); MONOCYTES # (AUTO) 1.2 X10'3 (0-0.9); MONOCYTES % (AUTO) 10.9 % (2-12); NEUTROPHILS # (AUTO) 7.8 X10'3 (1.8-7.7); NEUTROPHILS % (AUTO) 71.4 % (42-75); PLATELET COUNT 200 X10'3 (140-440); RED BLOOD COUNT 4.39 X10'6 (4.20-5.60); RED CELL DISTRIBUTION WIDTH 16.6 % (11.5-14.5)
[2023-02-03 09:57] LABS: HYPOCHROMASIA 1+; LARGE PLATELETS FEW; PLATELET ESTIMATE NORMAL
[2023-02-03 09:58] LABS: ANISOCYTOSIS 1+; ELLIPTOCYTES 1+; MICROCYTOSIS 2+; SCHISTOCYTES FEW; TARGET CELLS FEW; TEAR DROP CELLS 1+
[2023-02-03 10:44] VITALS: BP 97/54; PULSE 87; RESP 16; TEMP 98.6; O2SAT 97
[2023-02-03 18:00] VITALS: BP 120/62; PULSE 90; RESP 18; TEMP 98.4; O2SAT 96
--- NOTE | 2023-02-03 18:18 | NUR ---
Problems reprioritized. Patient report given, questions answered & plan of care reviewed with VINCENT Meléndez.
--- NOTE | 2023-02-03 18:30 | NUR ---
Patient in room [facility]TH[facility] 4007. I have received report from VINCENT Espinoza and had the opportunity to ask questions and assume patient care.
[2023-02-03] MEDS: sennosides 8.6mg tablet PO SCH (20:10)
[2023-02-03] MEDS: atorvastatin 10mg tablet PO SCH (20:10)
[2023-02-03 20:40] VITALS: RESP 18; O2SAT 96
[2023-02-03] MEDS: insulin glargine (Lantus) pen - multi-dose SQ SCH (21:20)
[2023-02-03 22:00] VITALS: BP 123/82; PULSE 104; RESP 18; TEMP 97.1; O2SAT 100
[2023-02-04] MEDS: HYDROcodone/acetaminophen 10/325mg tab PO PRN ×5 (04:11→17:08)
[2023-02-04 06:00] VITALS: BP 141/68; PULSE 95; RESP 20; TEMP 98; O2SAT 100
--- NOTE | 2023-02-04 06:24 | NUR ---
Problems reprioritized. Patient report given, questions answered & plan of care reviewed with VINCENT Espinoza.
--- NOTE | 2023-02-04 06:32 | NUR ---
Patient in room [facility]TH[facility] 4007. I have received report from VINCENT Meléndez and had the opportunity to ask questions and assume patient care.
[2023-02-04] MEDS: gabapentin 300mg capsule PO SCH ×3 (08:26→20:40)
[2023-02-04] MEDS: lisinopril 20mg tablet PO SCH (08:26)
[2023-02-04] MEDS: methadone 10mg tablet PO SCH (08:28)
[2023-02-04] MEDS: aspirin 325mg tablet PO SCH (08:28)
[2023-02-04] MEDS: celeCOXIB 100mg capsule PO SCH ×2 (08:28→20:40)
[2023-02-04] MEDS: ascorbic acid 500mg tablet PO SCH ×2 (08:28→20:40)
[2023-02-04] MEDS: multivitamins, therapeutics tablet PO SCH (08:28)
[2023-02-04] MEDS: pantoprazole 40mg Tablet.DR PO SCH (08:29)
[2023-02-04 09:37] VITALS: O2SAT 98
--- NOTE | 2023-02-04 09:57 | NUR ---
Doctor Mo Buchanan wants patient to go to rehab. I have notified case management to get her placed [facility]. Will continue to wait for case management to find placement.
[2023-02-04 10:00] VITALS: BP 126/70; PULSE 90; RESP 16; TEMP 97.9; O2SAT 100
[2023-02-04 18:00] VITALS: BP 103/56; PULSE 86; RESP 17; TEMP 97.8; O2SAT 98
--- NOTE | 2023-02-04 18:30 | NUR ---
Patient in room [facility]TH[facility] 4007. I have received report from VINCENT Espinoza and had the opportunity to ask questions and assume patient care.
--- NOTE | 2023-02-04 18:48 | NUR ---
Problems reprioritized. Patient report given, questions answered & plan of care reviewed with VINCENT Meléndez.
[2023-02-04 20:20] VITALS: RESP 17; O2SAT 98
[2023-02-04] MEDS: atorvastatin 10mg tablet PO SCH (20:40)
[2023-02-04] MEDS: sennosides 8.6mg tablet PO SCH (20:41)
[2023-02-04] MEDS: insulin glargine (Lantus) pen - multi-dose SQ SCH (21:00)
[2023-02-04 22:00] VITALS: BP 122/64; PULSE 88; RESP 15; TEMP 97.9; O2SAT 100
[2023-02-05] MEDS: HYDROcodone/acetaminophen 10/325mg tab PO PRN ×2 (04:48→14:02)
[2023-02-05 06:00] VITALS: BP 135/72; PULSE 98; RESP 16; TEMP 98.3; O2SAT 99
[2023-02-05 06:04] LABS: BASOPHILS # (AUTO) 0.1 X10'3 (0-0.2); BASOPHILS % (AUTO) 0.7 % (0-1); EOSINOPHILS # (AUTO) 0.3 X10'3 (0-0.9); EOSINOPHILS % (AUTO) 2.9 % (0-6); HEMATOCRIT 25.8 % (35.0-45.0); HEMOGLOBIN 8.1 g/dl (12.0-16.0); LYMPHOCYTES # (AUTO) 1.4 X10'3 (1.1-4.8); LYMPHOCYTES % (AUTO) 14.5 % (21-51); MEAN CORPUSCULAR HEMOGLOBIN 20.7 PG (27.0-31.0); MEAN CORPUSCULAR HGB CONC 31.5 g/dL (33.0-36.5); MEAN CORPUSCULAR VOLUME 65.7 FL (78-98); MEAN PLATELET VOLUME 9.4 FL (7.4-10.4); MONOCYTES # (AUTO) 0.6 X10'3 (0-0.9); MONOCYTES % (AUTO) 6.6 % (2-12); NEUTROPHILS # (AUTO) 7.3 X10'3 (1.8-7.7); NEUTROPHILS % (AUTO) 75.3 % (42-75); PLATELET COUNT 229 X10'3 (140-440); RED BLOOD COUNT 3.93 X10'6 (4.20-5.60); RED CELL DISTRIBUTION WIDTH 15.9 % (11.5-14.5); WHITE BLOOD COUNT 9.7 X10'3 (4.5-11.0)
--- NOTE | 2023-02-05 06:24 | NUR ---
Problems reprioritized. Patient report given, questions answered & plan of care reviewed with VINCENT Figueroa.
[2023-02-05 06:41] LABS: ALBUMIN 2.2 G/DL (3.4-5.0); ANION GAP 10 (8-16); BLOOD UREA NITROGEN 18 MG/DL (7-18); BUN/CREATININE RATIO 21.7 (10.0-20.0); CALCIUM 8.2 MG/DL (8.5-10.1); CHLORIDE 104 MMOL/L (99-107); CREATININE 0.83 MG/DL (0.40-0.90); GLUCOSE 151 MG/DL (70-104); POTASSIUM 4.1 MMOL/L (3.5-5.1); SODIUM 138 MMOL/L (135-145); TOTAL CARBON DIOXIDE 24.1 MMOL/L (24-32); eCRCL 45 ML/MIN; eGFR 71 ML/MIN
[2023-02-05 07:07] LABS: HYPOCHROMASIA 1+; MICROCYTOSIS 2+; PLATELET ESTIMATE NORMAL; TARGET CELLS FEW
[2023-02-05 07:08] LABS: ANISOCYTOSIS FEW; BURR CELLS FEW; ELLIPTOCYTES 1+; POLYCHROMASIA FEW
[2023-02-05] MEDS: aspirin 325mg tablet PO SCH (09:25)
[2023-02-05] MEDS: lisinopril 20mg tablet PO SCH (09:26)
[2023-02-05] MEDS: ascorbic acid 500mg tablet PO SCH (09:26)
[2023-02-05] MEDS: methadone 10mg tablet PO SCH (09:26)
[2023-02-05] MEDS: multivitamins, therapeutics tablet PO SCH (09:26)
[2023-02-05] MEDS: atorvastatin 10mg tablet PO SCH (09:26)
[2023-02-05] MEDS: pantoprazole 40mg Tablet.DR PO SCH (09:27)
[2023-02-05] MEDS: gabapentin 300mg capsule PO SCH ×2 (09:27→14:00)
[2023-02-05] MEDS: celeCOXIB 100mg capsule PO SCH (09:34)
--- NOTE | 2023-02-05 09:50 | NUR ---
Patient in room [facility]TH[facility] 4007. I have received report from bart reed and had the opportunity to ask questions and assume patient care.
[2023-02-05 10:00] VITALS: BP 127/66; PULSE 98; RESP 14; TEMP 98.4; O2SAT 98
--- NOTE | 2023-02-05 13:30 | NUR ---
Problems reprioritized. Patient report given, questions answered & plan of care reviewed with gagan at [facility].
--- NOTE | 2023-02-05 15:10 | NUR ---
pt stable for dc, iv was dc in early am and per md it was ok to not have since pt will be going to rehab today, all belongings taken, and report was called, pt family took her belongings home. she was picked up by [facility] personnel and left in a [facility] to [facility].
[2023-02-05 15:13] VITALS: RESP 16
== END 2023-02-05 14:05 | disposition home or self-care (01) | DRG 326 ==
LOC: PAS IN 06:40 → ORTHO 4S 17:55
PROVIDERS: ADMIT Orthopaedic Surgery; ATTEND Orthopaedic Surgery
PROC: 3E0T3BZ Introduction of Anesthetic Agent into Peripheral Nerves and Plexi, Percutaneous Approach (ICD-10-PCS; 2023-01-31)
PROC: 3E0T33Z Introduction of Anti-inflammatory into Peripheral Nerves and Plexi, Percutaneous Approach (ICD-10-PCS; 2023-01-31)
PROC: 0SRD0J9 Replacement of Left Knee Joint with Synthetic Substitute, Cemented, Open Approach (ICD-10-PCS; principal; 2023-01-31 09:41)
DX: M17.12 Unilateral primary osteoarthritis, left knee (principal); D50.9 Iron deficiency anemia, unspecified; F11.10 Opioid abuse, uncomplicated; M85.80 Other specified disorders of bone density and structure, unspecified site; Z79.899 Other long term (current) drug therapy
CPT/HCPCS: 36415; 73560; 80048; 80051; 80053; 82948; 83036; 85008; 85025; 86885; 86900; 86901; 87081; 97116; 97161; 97530; A4215; A4615; A7000; C1713; C1776; G0378; J0131; J0171; J0690; J0735; J1100; J1170; J1815; J1885; J2250; J2704; J2765; J2795; J3010; J3370; J3480; J3490; J7060; J7120

== ENCOUNTER 2023-10-18 06:14 | Inpatient (IN) | payer MEDICAID ==
[2023-10-09 10:52] LABS: BASOPHILS % (AUTO) 0.4 % (0-1); EOSINOPHILS # (AUTO) 0.3 X10'3 (0-0.9); EOSINOPHILS % (AUTO) 3.9 % (0-6); LYMPHOCYTES # (AUTO) 1.8 X10'3 (1.1-4.8); LYMPHOCYTES % (AUTO) 22.6 % (21-51); MEAN CORPUSCULAR HEMOGLOBIN 20.1 PG (27.0-31.0); MEAN CORPUSCULAR HGB CONC 30.9 g/dL (33.0-36.5); MEAN CORPUSCULAR VOLUME 65.1 FL (78-98); MEAN PLATELET VOLUME 9.3 FL (7.4-10.4); MONOCYTES # (AUTO) 0.6 X10'3 (0-0.9); MONOCYTES % (AUTO) 7.7 % (2-12); NEUTROPHILS # (AUTO) 5.3 X10'3 (1.8-7.7); NEUTROPHILS % (AUTO) 65.4 % (42-75); PRE OP HEMATOCRIT 31.9 % (35.0-45.0); PRE OP PLATELET COUNT 225 X10'3 (140-440); PRE OP WHITE BLOOD COUNT 8.1 10'3 (4.8-10.8); RED CELL DISTRIBUTION WIDTH 15.7 % (11.5-14.5)
[2023-10-09 10:54] LABS: PRE OP HEMOGLOBIN 9.9 g/dL (12.0-16.0)
[2023-10-09 11:08] LABS: ALBUMIN 3.2 G/DL (3.4-5.0); ALBUMIN/GLOBULIN RATIO 0.7 (1.1-1.5); ALKALINE PHOSPHATASE 96 IU/L (46-116); BLOOD UREA NITROGEN 16 MG/DL (7-18); CALCIUM 8.4 MG/DL (8.5-10.1); CHLORIDE 104 MMOL/L (99-107); CREATININE 0.84 MG/DL (0.40-0.90); PRE OP ALT 22 U/L (30-65); PRE OP ANION GAP 9 (8-16); PRE OP AST 18 U/L (10-37); PRE OP BILIRUB, TOTAL 0.3 MG/DL (0.0-1.0); PRE OP GLUCOSE 137 MG/DL (70-104); PRE OP POTASSIUM 3.6 MMOL/L (3.4-5.1); PRE OP SODIUM 143 MMOL/L (135-145); TOTAL CARBON DIOXIDE 30.3 MMOL/L (24-32); TOTAL PROTEIN 7.8 G/DL (6.4-8.2); eGFR 70 ML/MIN
[2023-10-09 11:13] LABS: HYPOCHROMASIA 1+; MICROCYTOSIS 2+; PLATELET ESTIMATE NORMAL; TEAR DROP CELLS FEW
[2023-10-09 11:14] LABS: ELLIPTOCYTES FEW
[~2023-10-18] VITALS: Ht 149.9 cm; Wt 63.5 kg
[2023-10-18] VITALS (23 sets, daily range): BP systolic 100–140; BP diastolic 50–73; PULSE 56–91; RESP 12–18; TEMP 97.3–98.9; O2SAT 94–99
[2023-10-18] MEDS: tranexamic acid inj. 1,000 MG in normal saline IV soln 100ML IV ONE (05:30)
[~2023-10-18 06:14] MED LIST changes: +CELE-127 PO; +GABA300T28 PO; +HYDR12.55 PO; -IBUP-1985 PO; +METF-438 PO; -METF-900 PO; -OMEP20CA16 PO; -cefazolin 2gm/D5W 100mL 100 ML IV ONE; -famotidine 20mg tablet PO ONE; -ringers solution, lacted 1,000 ML IV SCH; -vancomycin 1,500 MG in NS 300ml IV soln IV ONE
[2023-10-18] MEDS: cefazolin 2gm/D5W 100mL 100 ML IV ONE (06:27)
[2023-10-18] MEDS ORDERED: HYDROmorphone inj. 0.5 MG/0.5 ML DISP.SYRIN IV PRN (07:20)
[2023-10-18] MEDS: ROPIVAcaine inj 250 MG, CloNIDine/PF inj 80 MCG, epiNEPHrine inj 0.5 MG in normal salin... IV ONE (07:20)
[2023-10-18] MEDS ORDERED: dextrose 50%-water 50ml dispensing syringe IV PRN ×2 (07:20)
[2023-10-18] MEDS ORDERED: acetaminophen 325mg tablet PO PRN (07:20)
[2023-10-18] MEDS ORDERED: ondansetron/PF 4mg/2ml inj IV PRN ×2 (07:20→09:35)
[2023-10-18] MEDS ORDERED: glucagon, human recombinant 1mg kit SUBCUT PRN (07:20)
[2023-10-18] MEDS ORDERED: naloxone 0.4 mg/ml inj IV PRN (07:20)
[2023-10-18] MEDS ORDERED: magnesium hydroxide 30ml (MOM) UD suspension PO PRN (07:20)
[2023-10-18] MEDS ORDERED: DEXTROSE 15 GM of carb/4 tabs (each vial/BOTTLE has 4 tablets) PO PRN ×2 (07:20)
[2023-10-18] MEDS ORDERED: bisacodyl 10mg suppository rectal RC PRN (07:20)
[2023-10-18] MEDS: BUPIVACAINE/MELOXICAM 14 ML VIAL IL ONE ×2 (08:13→11:25)
[2023-10-18] MEDS: ringers solution, lacted 1,000 ML IV SCH ×2 (08:32→16:51)
[2023-10-18] MEDS: vancomycin 1,500 MG in NS 300ml IV soln IV ONE (08:35)
[2023-10-18] MEDS: metoclopramide 5 mg/ml inj IV ONE (08:36)
[2023-10-18] MEDS: celeCOXIB 100mg capsule PO ONE (08:37)
[2023-10-18] MEDS: gabapentin 300mg capsule PO ONE (08:38)
[2023-10-18] MEDS: famotidine 20mg tablet PO ONE (08:38)
[2023-10-18] MEDS: acetaminophen 325mg tablet PO ONE (08:39)
[2023-10-18] MEDS: vancomycin 1,000mg inj ONE (09:01)
[2023-10-18] MEDS ORDERED: proCHLORperazine 10 MG/2 ml inj IV PRN (09:35)
[2023-10-18] MEDS ORDERED: morphine 4 MG/ML inj SYRINge IV PRN (09:35)
[2023-10-18] MEDS ORDERED: hydrALAZINE 20mg/ml inj. IV PRN (09:35)
[2023-10-18] MEDS ORDERED: labetalol 20mg/4ml (5mg/ml) syringe IV PRN (09:35)
[2023-10-18] MEDS ORDERED: meperidine/PF 25mg/ml syringe IV PRN ×3 (09:35)
[2023-10-18] MEDS ORDERED: morphine 2 MG/ML inj. syringe IV PRN (09:35)
[2023-10-18] MEDS ORDERED: fentaNYL/PF 50MCG/1 ML 2ML syringe ONE (09:41)
[2023-10-18] MEDS ORDERED: midazolam 1 mg/ML 2ml injection ONE (09:41)
[2023-10-18] MEDS ORDERED: BUPIVAcaine/dex-water/PF 7.5 mg/ml 2ml ampul ONE (09:53)
[2023-10-18] MEDS: oxyCODONE SR 10mg (sust. release) tab -2 tabs (20mg) PO ONE (10:00)
[2023-10-18] MEDS ORDERED: propofol inj 20 ML IV ONE ×2 (10:31)
[2023-10-18] MEDS ORDERED: 0.9 % SODIUM CHLORIDE 10 ML VIAL ONE (11:14)
[2023-10-18] MEDS ORDERED: ROPIVAcaine 0.5% (5mg/ml) 30ml vial ONE (11:14)
[2023-10-18] MEDS: INSULIN LISPRO 100 UNIT/ML INSULN.PEN MULTI-DOSE SQ SCH (12:00)
[2023-10-18] MEDS: acetaminophen 1,000mg/100ml IV 100 ML IV ONE (12:42)
[2023-10-18] MEDS: tranexamic acid inj. 650 MG in normal saline 100ml IV soln 93.5 ML IV ONE (15:00)
[2023-10-18] MEDS: potassium cl 20mEq in 1/2 NS 1,000 ML IV SCH (15:20)
[2023-10-18] MEDS: HYDROcodone/acetaminophen 10/325mg tab PO PRN (16:36)
[2023-10-18] MEDS: ceFAZolin/D5W- 1GM premix 50 ML IV SCH (16:51)
[2023-10-18] MEDS: vancomycin/NS 1 GM ADD-VANTAGE 250 ML IV SCH (21:21)
[2023-10-18] MEDS: ascorbic acid 500mg tablet PO SCH (21:21)
[2023-10-18] MEDS: HYDROchlorothiazide 12.5mg capsule PO SCH (21:21)
[2023-10-18] MEDS: atorvastatin 10mg tablet PO SCH (21:21)
[2023-10-18] MEDS: sennosides 8.6mg tablet PO SCH (21:21)
[2023-10-19] MEDS: diphenhydrAMINE 25mg capsule PO PRN ×2 (01:32→22:10)
[2023-10-19 06:21] LABS: BASOPHILS # (AUTO) 0.1 X10'3 (0-0.2); BASOPHILS % (AUTO) 0.5 % (0-1); EOSINOPHILS # (AUTO) 0.2 X10'3 (0-0.9); EOSINOPHILS % (AUTO) 1.7 % (0-6); HEMATOCRIT 31.6 % (35.0-45.0); HEMOGLOBIN 9.9 g/dl (12.0-16.0); LYMPHOCYTES % (AUTO) 18.5 % (21-51); MEAN CORPUSCULAR HEMOGLOBIN 20.2 PG (27.0-31.0); MEAN CORPUSCULAR HGB CONC 31.4 g/dL (33.0-36.5); MEAN CORPUSCULAR VOLUME 64.4 FL (78-98); MEAN PLATELET VOLUME 8.8 FL (7.4-10.4); MONOCYTES # (AUTO) 0.9 X10'3 (0-0.9); MONOCYTES % (AUTO) 8.3 % (2-12); NEUTROPHILS # (AUTO) 7.7 X10'3 (1.8-7.7); PLATELET COUNT 272 X10'3 (140-440); RED BLOOD COUNT 4.91 X10'6 (4.20-5.60); RED CELL DISTRIBUTION WIDTH 15.4 % (11.5-14.5); WHITE BLOOD COUNT 10.8 X10'3 (4.5-11.0)
[2023-10-19 06:23] VITALS: BP 172/73; PULSE 86; RESP 20; TEMP 98.1; O2SAT 99
[2023-10-19 06:35] LABS: ANION GAP 10 (8-16); CHLORIDE 105 MMOL/L (99-107); POTASSIUM 3.7 MMOL/L (3.5-5.1); SODIUM 143 MMOL/L (135-145); TOTAL CARBON DIOXIDE 27.7 MMOL/L (24-32)
[2023-10-19] MEDS: methadone 10mg tablet PO SCH (07:02)
[2023-10-19 07:30] VITALS: RESP 20; O2SAT 99
[2023-10-19] MEDS: HYDROmorphone 1 mg/ml syringe IV PRN (09:30)
[2023-10-19] MEDS: multivitamins, therapeutics tablet PO SCH (09:40)
[2023-10-19] MEDS: aspirin 325mg tablet PO SCH (09:40)
[2023-10-19] MEDS: lisinopril 20mg tablet PO SCH (09:41)
[2023-10-19 10:00] VITALS: BP 195/95; PULSE 95; RESP 16; TEMP 97.4; O2SAT 95
[2023-10-19] MEDS: HYDROcodone/acetaminophen 10/325mg tab PO PRN (11:24)
[2023-10-19 18:00] VITALS: BP 208/102; PULSE 106; RESP 18; TEMP 97.5; O2SAT 100
[2023-10-19 19:00] VITALS: BP 189/92; RESP 18; O2SAT 96
[2023-10-19] MEDS: celeCOXIB 100mg capsule PO SCH (19:12)
[2023-10-19] MEDS: gabapentin 300mg capsule PO SCH (19:14)
[2023-10-19 22:00] VITALS: BP 180/92; PULSE 97; RESP 16; TEMP 98.4; O2SAT 99
[2023-10-20] VITALS (8 sets, daily range): BP systolic 93–189; BP diastolic 51–103; PULSE 96–125; RESP 13–24; TEMP 97.4–99.1; O2SAT 95–100
[2023-10-20] MEDS: hydrALAZINE 20mg/ml inj. IV ONE (01:26)
[2023-10-20 06:59] LABS: BASOPHILS % (AUTO) 0.1 % (0-1); EOSINOPHILS % (AUTO) 0.2 % (0-6); HEMATOCRIT 32.9 % (35.0-45.0); HEMOGLOBIN 10.4 g/dl (12.0-16.0); LYMPHOCYTES # (AUTO) 1.7 X10'3 (1.1-4.8); MEAN CORPUSCULAR HEMOGLOBIN 19.9 PG (27.0-31.0); MEAN CORPUSCULAR HGB CONC 31.5 g/dL (33.0-36.5); MEAN CORPUSCULAR VOLUME 63.2 FL (78-98); MEAN PLATELET VOLUME 8.9 FL (7.4-10.4); MONOCYTES # (AUTO) 1.3 X10'3 (0-0.9); MONOCYTES % (AUTO) 8.4 % (2-12); NEUTROPHILS # (AUTO) 12.4 X10'3 (1.8-7.7); NEUTROPHILS % (AUTO) 80.3 % (42-75); PLATELET COUNT 305 X10'3 (140-440); RED BLOOD COUNT 5.21 X10'6 (4.20-5.60); WHITE BLOOD COUNT 15.5 X10'3 (4.5-11.0)
[2023-10-20] MEDS: oxyCODONE/APAP 10/325mg tablet PO PRN ×2 (10:18→20:44)
[2023-10-21 05:43] LABS: BASOPHILS # (AUTO) 0.1 X10'3 (0-0.2); BASOPHILS % (AUTO) 0.5 % (0-1); EOSINOPHILS # (AUTO) 0.4 X10'3 (0-0.9); EOSINOPHILS % (AUTO) 2.8 % (0-6); HEMATOCRIT 29.3 % (35.0-45.0); HEMOGLOBIN 9.2 g/dl (12.0-16.0); LYMPHOCYTES # (AUTO) 3.1 X10'3 (1.1-4.8); LYMPHOCYTES % (AUTO) 22.1 % (21-51); MEAN CORPUSCULAR HEMOGLOBIN 19.9 PG (27.0-31.0); MEAN CORPUSCULAR HGB CONC 31.4 g/dL (33.0-36.5); MEAN CORPUSCULAR VOLUME 63.2 FL (78-98); MEAN PLATELET VOLUME 8.5 FL (7.4-10.4); MONOCYTES # (AUTO) 1.3 X10'3 (0-0.9); MONOCYTES % (AUTO) 9.4 % (2-12); NEUTROPHILS # (AUTO) 9.3 X10'3 (1.8-7.7); NEUTROPHILS % (AUTO) 65.2 % (42-75); PLATELET COUNT 312 X10'3 (140-440); RED BLOOD COUNT 4.64 X10'6 (4.20-5.60); RED CELL DISTRIBUTION WIDTH 15.5 % (11.5-14.5); WHITE BLOOD COUNT 14.2 X10'3 (4.5-11.0)
[2023-10-21 06:00] VITALS: BP 96/54; PULSE 105; RESP 14; TEMP 97.8; O2SAT 99
[2023-10-21 07:00] VITALS: RESP 18; O2SAT 95
[2023-10-21 10:00] VITALS: BP 112/57; PULSE 119; RESP 14; TEMP 99; O2SAT 90
== END 2023-10-21 15:55 | disposition home or self-care (01) | DRG 326 ==
LOC: PAS IN 06:14 → EDSTATUS 11:30 → ORTHO 4S 13:52
PROVIDERS: ADMIT Orthopaedic Surgery; ATTEND Orthopaedic Surgery
PROC: 0SRC0J9 Replacement of Right Knee Joint with Synthetic Substitute, Cemented, Open Approach (ICD-10-PCS; principal; 2023-10-18 09:53)
DX: M17.11 Unilateral primary osteoarthritis, right knee (principal); Z96.651 Presence of right artificial knee joint
CPT/HCPCS: 36415; 71046; 73560; 80051; 80053; 82948; 83036; 85008; 85025; 86885; 86900; 86901; 87081; 97110; 97116; 97162; 97530; A4215; A6213; A6258; A6449; A7000; C1713; C1776; G0378; J0131; J0171; J0360; J0690; J0735; J1100; J1170; J1815; J2250; J2704; J2765; J2795; J3010; J3370; J3480; J3490; J7120; Q0163